=== PATIENT | female | born 1975 | race Caucasian/White ===

== ENCOUNTER 2017-03-16 10:43 | Emergency (ER) | payer SELFPAY ==
[~2017-03-16] VITALS: Ht 157.5 cm; Wt 88.6 kg
[~2017-03-16 10:43] MED LIST: ABILIFY2 MG PO; CELEBREX200 MG PO; GLUCOPHAGE1000 MG PO; LEXAPRO20 MG PO; NOHOMEMEDS; PEN-VEE K,VEET250 MG PO; Prilosec PO; ULTRAM50 MG PO; Vicodin,Lortab 5/500 PO; ZANTAC150 MG PO
[2017-03-16] MEDS ORDERED: MOTRIN800 MG PO (12:07)
[2017-03-16] MEDS ORDERED: FLEXERIL10 MG PO (12:07)
[2017-03-16 12:42] VITALS: BP 106/66
== END 2017-03-16 12:43 | disposition home or self-care (01) ==
LOC: EME 10:43
DX: S20.211A Contusion of right front wall of thorax, initial encounter (principal); S29.011A Strain of muscle and tendon of front wall of thorax, initial encounter; X50.0XXA Overexertion from strenuous movement or load, initial encounter; Y93.83 Activity, rough housing and horseplay; Z98.84 Bariatric surgery status; Z88.8 Allergy status to other drugs, medicaments and biological substances
CPT/HCPCS: 71046; 99281; 99283